=== PATIENT | female | born 1995 | race Caucasian/White ===

== ENCOUNTER 2018-01-12 16:57 | Emergency (ER) | payer BC ==
[2018-01-12 17:24] VITALS: BP 134/75
--- NOTE | 2018-01-12 17:46 | UC ---
Throat Pain/Nasal Kofi HPI - HPI Summary HPI Summary: 22 y/o female presents to the urgent care c/o pain in her nose bridge w/ redness and swelling for the past 4 days. Pt reports she thought it was her seasonal allergies at the beginning. She took Loratadine and sudafed PO w/o any relief of symptoms. Yesterday, she noticed redness in her nose and pain at touch, nasal discharge is mild and clear. She doesn't recall any injury, insect bite. 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 Left nostril is more painful than RT nostril. Pt denies fever, SOB , chest pain, CASTELLON, abdominal pain, N/V/D. Pt is UTD w/ vaccines for her age. - History of Current Complaint Chief Complaint: UCGeneralIllness Stated Complaint: SINUSES Time Seen by Provider: 01/12/18 17:22 Hx Obtained From: Patient Hx Last Menstrual Period: 12/05/17 Onset/Duration: Gradual Onset, Lasting Days - 4 days, Worse Since - ysterday Severity: Mild Pain Intensity: 1 Pain Scale Used: 0-10 Numeric Cough: None Associated Signs & Symptoms: Positive: Nasal Discharge - clear, Other - nose pain at touch w/ redness over the nose bridge - Epiglottits Risk Factors Epiglottis Risk Factors: Negative - Allergies/Home Medications Allergies/Adverse Reactions: Allergies Allergy/AdvReac Type Severity Reaction Status Date / Time No Known Allergies Allergy Verified 01/12/18 17:13 Home Medications: Home Medications Desogestrel-Ethinyl Estradiol [ 28 Day Tablet] 1 tab PO DAILY 01/12/18 [ History Confirmed 01/12/18] Loratadine 10 mg PO DAILY PRN 01/12/18 [History Confirmed 01/12/18] Pseudoephedrine TAB* [Sudafed TAB*] 30 mg PO Q6H PRN 01/12/18 [History Confirmed 01/12/18] PMH/Surg Hx/FS Hx/Imm Hx Previously Healthy: Yes Other Respiratory History: recurrent ear infection, seassonal allergies - Surgical History Surgical History: Yes Surgery Procedure, Year, and Place: ADNOIDECTOMY - Family History Known Family History: Positive: None - Pt denies FMHX - Social History Occupation: Student Lives: Dormitory/Roommates Alcohol Use: Occasionally Substance Use Type: None Smoking Status (MU): Never Smoked Tobacco - Immunization History Vaccination Up to Date: Yes Review of Systems Constitutional: Negative Skin: Negative Eyes: Negative ENT: Nasal Discharge - clear, Other - nose pain w/ redness and swelling over the nose bridge Respiratory: Negative Cardiovascular: Negative Gastrointestinal: Negative Genitourinary: Negative Motor: Negative Neurovascular: Negative Musculoskeletal: Negative Neurological: Negative Psychological: Negative Is Patient Immunocompromised?: No All Other Systems Reviewed And Are Negative: Yes Physical Exam - Summary Physical Exam Summary: Vital Signs Reviewed: Yes General: well developed, well nourished female sitting in the examining table w/ o any apparent distress. Eyes: Positive: Conjunctiva Clear - PERRLA, EOMI ENT: Positive: Normal ENT inspection, Hearing grossly normal, Pharynx normal, TMs normal. Nasal congestion - edematous and erythematous nasal mucosa, Nasal drainage - clear drainage, Neck: Positive: Supple, Nontender, No Lymphadenopathy Respiratory: Positive: Chest nontender, Lungs clear, Normal breath sounds Cardiovascular: Positive: RRR, No Murmur, Pulses Normal Abdomen Description: Positive: Nontender, No Organomegaly, Soft. Negative: CVA Tenderness (R), CVA Tenderness (L) Bowel Sounds: Positive: Present Musculoskeletal: Positive: Strength Intact, ROM Intact, No Edema Neurological Exam: Normal Psychological Exam: Normal Skin: Positive: rashes - anterior aspect of the nose around brigade w/a small erythematous patch w/ indistinct borders about 1.0cm x 0.8cm in size, warm to touch, mild swelling and tender to palpation. inside left nostril w/ a erythematous indurated papule w/ point white discharge Triage Information Reviewed: Yes Vital Signs: Initial Vital Signs Temp 98.6 F 01/12/18 17:17 Pulse 88 01/12/18 17:17 Resp 20 01/12/18 17:17 BP 134/75 01/12/18 17:17 Pulse Ox 100 01/12/18 17:17 Throat Pain/Nasal Course/Dx - Course Course Of Treatment: 22 y/o female presents to the urgent care c/o pain in her nose bridge w/ redness and swelling for the past 4 days. Pt reports she thought it was her seasonal allergies at the beginning. She took Loratadine and sudafed PO w/o any relief of symptoms. Yesterday, she noticed redness in her nose and pain at touch, nasal discharge is mild and clear. She doesn't recall any injury, insect bite. 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 Left nostril is more painful than RT nostril. Pt denies fever, SOB, chest pain, CASTELLON, abdominal pain, N/V/D. Pt is UTD w/ vaccines for her age. Hx obtained. PT w/ anterior aspect of the nose around bridge w/a small erythematous patch w/ indistinct borders about 1.0cm x 0.8cm in size, warm to touch, mild swelling and tender to palpation. inside left nostril w/ a erythematous indurated papule w/ point white discharge on examiantion. pt w/ small cellulitis over the nose. Pt Rx Kelfex PO,and bacitracin topical ointment. Pt advised if not improvement of symptoms to f/u w / her ENT DR Coppola. Also advised If redness doubles in size or fever develops despite taking ABX to go immediately to the ER. D/C instructions explained pt understood and agreed w/ plan of care. - Differential Dx/Diagnosis Differential Diagnosis/HQI/PQRI: Sinusitis, URI, Other - cellulitis, abscess Provider Diagnoses: 1- Cellulitis in the nose Discharge - Sign-Out/Discharge Documenting (check all that apply): Discharge/Admit/Transfer - D/C home - Discharge Plan Condition: Stable Disposition: HOME Prescriptions: Bacitracin OINTMENT* 1 applic TOPICAL BID #1 tube Cephalexin CAP* [Keflex CAP*] 500 mg PO QID #28 cap Patient Education Materials: Cellulitis (ED) Referrals: [facility] [place] [facility] [Outside] - 3 Days José Coppola MD [Medical Doctor] - 3 Days Additional Instructions: 1-Please take full course of Antibiotic. 2- If redness and swelling doubles in size after 48 hrs of taking antibiotic and fever develops please go to the ER immediately. 3-Apply Bacitracin oint as directed inside your left nostril. 4-Please F/u with your PCP in [address] Coppola if not improvement of symptoms for further evaluation and treatment. - Billing Disposition and Condition Condition: STABLE Disposition: HOME
== END 2018-01-12 18:28 | disposition home or self-care (01) ==
LOC: UCCORT 16:57
DX: J34.0 Abscess, furuncle and carbuncle of nose (principal)
CPT/HCPCS: 99202; G0463